=== PATIENT | female | born 1945 | race Hispanic/Latino ===

== ENCOUNTER 2024-03-24 23:19 | Emergency (ER) | payer MEDICARE, OTHER ==
[~2024-03-24] VITALS: Ht 154.9 cm; Wt 59.0 kg
[2024-03-24 23:45] VITALS: TEMP 98.1
[2024-03-24 23:52] LABS: APPEARANCE,URINE CLOUDY (CLEAR); BILIRUBIN,URINE NEGATIVE (NEGATIVE); COLOR,URINE LIGHT-YELLOW (YELLOW); GLUCOSE, URINE (UA) NEGATIVE (NEGATIVE); KETONES,URINE NEGATIVE (NEGATIVE); LEUKOCYTE ESTERASE ,URINE 500 Leu/uL (NEGATIVE); NITRATE,URINE 1+ (NEGATIVE); OCCULT BLOOD,URINE MODERATE (NEGATIVE); PH,URINE 6.5 (5.0-8.0); PROTEIN,URINE 20 mg/dL (NEGATIVE); UROBILINOGEN,URINE 0.2 mg/dL (0.2-1.0)
[2024-03-24 23:53] LABS: ADD UA MICROSCOPIC YES
[2024-03-24 23:56] LABS: BACTERIA,URINE FEW /HPF (None Seen); SQUAMOUS EPITHELIAL CELL,UR RARE /HPF (0-2); WBC CLUMP MOD /HPF (0-1); WBC,URINE TNTC /HPF (0-1)
[2024-03-25] MEDS: acetaMINOPHEN 325 MG TAB PO ONE (00:11)
[2024-03-25] MEDS: PHENAZOpyridine HCL 200 MG TAB 200 MG TABLET PO ONE (00:11)
[2024-03-25] MEDS: ondanSETRON 4MG INJ IVP ONE (00:20)
[2024-03-25 00:40] LABS: BASOPHILS # (AUTO) 0.07 K/uL (0.00-0.20); BASOPHILS % (AUTO) 0.6 % (0.0-5.0); EOSINOPHILS # (AUTO) 0.97 K/uL (0.00-0.70); HEMATOCRIT 40.1 % (36-48); IMMATURE GRANULOCYTE ABSOLUTE 0.07 K/uL (0-1); LYMPHOCYTES # (AUTO) 1.8 K/uL (1.0-4.8); LYMPHOCYTES % (AUTO) 14.6 % (21.0-51.0); MEAN CORPUSCULAR HEMOGLOBIN 30.7 pg (27.0-33.0); MEAN CORPUSCULAR HGB CONC 34.9 g/dL (32.0-36.0); MEAN CORPUSCULAR VOLUME 87.9 fL (79-99); MONOCYTES # (AUTO) 0.8 K/uL (0.1-1.0); MONOCYTES % (AUTO) 6.9 % (3.0-13.0); NEUTROPHILS # (AUTO) 8.5 K/uL (1.8-7.7); NEUTROPHILS % (AUTO) 69.3 % (40.0-77.0); PLATELET COUNT (AUTO) 215 K/uL (130-400); RED BLOOD CELL COUNT(AUTO) 4.56 MIL/uL (4.00-5.50); RED CELL DISTRIBUTION WIDTH 11.9 % (11.0-15.5); WHITE BLOOD COUNT (AUTO) 12.2 K/uL (4.8-10.8)
[2024-03-25 00:41] LABS: POTASSIUM 3.7 mmol/L (3.5-5.1)
[2024-03-25] MEDS: ketOROlac 15MG/ML VIAL (15MG/ML) IV ONE (00:49)
[2024-03-25] MEDS: 0.9%NACL 1000ML 1,000 ML IV ONE (01:07)
[2024-03-25] MEDS: cefTRIAXone 1G VIAL IVPB ONE (01:07)
[2024-03-25] MEDS: morPHINE 2 MG SYG IVP ONE ×2 (01:18→01:55)
[2024-03-25] MEDS ORDERED: NITR100C4 PO (03:51)
[2024-03-25] MEDS ORDERED: OXYC-38 PO (03:51)
[2024-03-25 03:54] VITALS: BP 156/65; PULSE 98; RESP 18; O2SAT 98
== END 2024-03-25 04:21 | disposition home or self-care (01) ==
LOC: EDH 23:19
DX: N30.00 Acute cystitis without hematuria (principal); E86.0 Dehydration; D72.829 Elevated white blood cell count, unspecified; R19.8 Other specified symptoms and signs involving the digestive system and abdomen
CPT/HCPCS: 99285; 80048; 85025; 87086; 81001; 36415; 74176; 96374; 96375; 76856; 96376; J2270 ×2; J7030; J0696; J2405; J1885